=== PATIENT | female | born 1990 | race Caucasian/White ===

== ENCOUNTER 2016-06-15 11:24 | Emergency (ER) | payer MEDICAID, OTHER ==
[~2016-06-15] VITALS: Wt 46.6 kg
[2016-06-15] MEDS ORDERED: BENZ100C70 PO (14:08)
[2016-06-15] MEDS ORDERED: FLUT9.9S NASAL (14:08)
[2016-06-15] MEDS ORDERED: PSEU30TA38 PO (14:08)
[2016-06-15] MEDS ORDERED: D-ME473S18 PO (14:08)
--- NOTE | 2016-06-15 15:22 | ERD ---
DATE OF SERVICE: HISTORY OF PRESENT ILLNESS: The patient is a 26-year-old female complaining of a sore throat and a cough for the last 5 days. She has had no fevers. Has positive sick contacts at home. Has mild na kathy congestion. Taking Thera-Flu with no alleviation. In the emergency she is trying vaporizing me dications. PAST MEDICAL HISTORY: Denies any other medical problems. ALLERGIES: DENIES ALLERGIES TO MEDICATIONS. PAST SURGICAL HISTORY: Appendectomy. SOCIAL HISTORY: Denies. REVIEW OF SYSTEMS: A 12-point review of systems was done. Refer to HPI for positives, all other sy stems negative. PHYSICAL EXAMINATION VITAL SIGNS: Temperature 98, pulse is 80, blood pressure is 135/77, respiratory rate 21, O2 saturat ion 98% on room air. Pain intensity is 6/10. GENERAL: The patient is well-appearing, well-nourished, no acute distress. HEART: Regular rate and rhythm. No murmurs, clicks, rubs or gallops. No S3 or S4. CHEST: Clear to auscultation bilaterally. There are no rales, wheezes or rhonchi. HEENT: Atraumatic. Conjunctivae are pink. Pupils equal, round, and reactive to light. There is no s cleral icterus. Tympanic membranes clear bilaterally. Oropharynx clear. No nystagmus or photophobia . ABDOMEN: Soft, nontender and nondistended. Good bowel sounds. No rebound or guarding. No gross amy tonitis. No gross organomegaly or masses. No Rios sign or McBurney point tenderness. SKIN: There is no apparent rash or petechia. The skin is warm and dry. DIAGNOSIS: Upper respiratory infection, viral. MEDICAL DECISION MAKING: I have low suspicion for meningitis or sepsis. Low suspicion for bacteria l HEENT infection, low suspicion for pneumonia. Patient's symptoms are associated with viral etiolo gy. I did not feel that there was indication for antibiotics. DISCHARGE: The patient is discharged stable. Patient was given a prescription for Phenergan, Yue tanvi, Sudafed, and Flonase, and told to follow up with primary care within 1 to 2 days for reevaluati on. The patient was told if symptoms progress or worsen to return to the ER. All other questions a nswered at time of discharge. Discharge summary given at the time of departure. Patient understood and complied with plan. Dictated By: ZEKE RUELAS for CAMERON SPARKS/MILAD Conf#: [id number] DID#: [id number]
== END 2016-06-15 14:24 | disposition home or self-care (01) ==
LOC: FTE 11:24
DX: J06.9 Acute upper respiratory infection, unspecified (principal)
CPT/HCPCS: 99284